=== PATIENT | male | born 1955 | race Caucasian/White ===

== ENCOUNTER → 2016-12-06 | Outpatient (CLI) | payer BC | LOC: COL.RAD 09:23 | DX: C61 Malignant neoplasm of prostate (principal) | CPT/HCPCS: A9503 ==

== ENCOUNTER 2016-12-15 15:19 | Inpatient (IN) | payer BC ==
[~2016-12-15] VITALS: Ht 180.3 cm; Wt 95.4 kg
[2017-01-10] VITALS (11 sets, daily range): BP systolic 115–158; BP diastolic 67–86; PULSE 74–93; TEMP 97.7–98.5
[2017-01-10] MEDS ORDERED: TENORMIN 5050 MG/TAB PO (08:34)
[2017-01-10] MEDS ORDERED: NORVASC 5MG5 MG/TAB PO (08:39)
[2017-01-10] MEDS ORDERED: COZAAR 50MG50 MG/TAB PO (08:39)
[2017-01-11 05:09] VITALS: BP 164/80; PULSE 80; TEMP 98.4
[2017-01-11 07:07] LABS: BASO % 0.3 % (0.0-2.0); EOS # 0.1 (0.0-0.7); EOS % 0.4 % (0-4.0); GRAN % 68.9 % (42.2-75.2); HEMATOCRIT 42.9 % (42.0-52.0); HEMOGLOBIN 14.6 g/dl (13.5-18.0); LYMPH # 2.4 (1.2-3.4); LYMPH % 18.7 % (20.0-51.0); MEAN CELL VOLUME 92 fl (80.0-100.0); MEAN CORPUSCULAR HEMOGLOBIN 31 pg (27.0-31.0); MEAN CORPUSCULAR HGB CONC 34 g/dl (33.0-37.0); MEAN PLATELET VOLUME 9.8 fl (7.4-10.4); MONO # 1.5 (0.1-0.6); MONO % 11.4 % (1.7-9.3); PLATELET COUNT 240 K/mm3 (130-400); RED BLOOD COUNT 4.69 M/mm3 (4.20-5.60); WHITE BLOOD COUNT 13.1 K/mm3 (4.8-10.8)
[2017-01-11 07:17] LABS: CALCIUM 8.5 mg/dL (8.4-10.2); CREATININE, serum 1.08 mg/dL (0.66-1.25); POTASSIUM 3.7 mmol/L (3.4-5.0)
[2017-01-11 08:43] VITALS: BP 147/79; PULSE 83; TEMP 98.5
[2017-01-11 13:13] VITALS: BP 156/81; PULSE 80; TEMP 98.2
[2017-01-11 18:04] VITALS: BP 149/87; PULSE 81; TEMP 98.3
[2017-01-11 22:17] VITALS: BP 149/86; PULSE 83; TEMP 98.8
[2017-01-12] VITALS (8 sets, daily range): BP systolic 112–154; BP diastolic 57–85; PULSE 67–82; TEMP 97.6–99.4
[2017-01-13] VITALS (7 sets, daily range): BP systolic 109–134; BP diastolic 66–78; PULSE 60–78; TEMP 97.5–98.4
[2017-01-14 05:35] VITALS: BP 122/74; PULSE 67; TEMP 98.2
[2017-01-14 08:45] VITALS: BP 142/82; PULSE 78; TEMP 98.1
[2017-01-14 13:28] VITALS: BP 123/79; PULSE 78; TEMP 98.5
== END 2017-01-14 14:20 | disposition home or self-care (01) | DRG 708 ==
LOC: INPTSU 01-10 08:14 → SURG 01-10 09:23
PROVIDERS: Urology
PROC: 07BC4ZX Excision of Pelvis Lymphatic, Percutaneous Endoscopic Approach, Diagnostic (ICD-10-PCS; 2017-01-10)
PROC: 8E0W4CZ Robotic Assisted Procedure of Trunk Region, Percutaneous Endoscopic Approach (ICD-10-PCS; 2017-01-10)
PROC: 0VT04ZZ Resection of Prostate, Percutaneous Endoscopic Approach (ICD-10-PCS; principal; 2017-01-10 10:00)
DX: C61 Malignant neoplasm of prostate (principal); N39.498 Other specified urinary incontinence
CPT/HCPCS: A9284; C1713; J0690; J1650; J1885; J2405; J2704; J3010; J7120

== ENCOUNTER → 2017-01-23 | Outpatient (CLI) | payer BC ==
[~2017-01-23] MED LIST: COZAAR 50MG50 MG/TAB PO; NORVASC 5MG5 MG/TAB PO; TENORMIN 5050 MG/TAB PO
== END ==
LOC: COL.RAD 09:59
DX: Z01.89 Encounter for other specified special examinations (principal)

== ENCOUNTER → 2017-01-25 | Outpatient (CLI) | payer BC | LOC: COL.RAD 01-23 09:57 | DX: Z48.89 Encounter for other specified surgical aftercare (principal); R39.81 Functional urinary incontinence; I82.4Z1 Acute embolism and thrombosis of unspecified deep veins of right distal lower extremity; I83.891 Varicose veins of right lower extremity with other complications; Z90.79 Acquired absence of other genital organ(s); Z98.890 Other specified postprocedural states | CPT/HCPCS: Q9967 ==

== ENCOUNTER → 2017-03-10 | Outpatient (CLI) | payer BC | LOC: BHSO 15:07 | DX: F41.1 Generalized anxiety disorder (principal) | CPT/HCPCS: G0463 ==